=== PATIENT | female | born 1985 | race Caucasian/White ===

== ENCOUNTER 2020-11-09 07:18 | Emergency (ER) | payer OTHER ==
[~2020-11-09] VITALS: Ht 157.5 cm; Wt 81.7 kg
[2020-11-09] MEDS ORDERED: LOSARTAN POTASS50 MG PO (07:34)
[2020-11-09] MEDS ORDERED: HYDROCHLOROTHIA25 MG PO (07:34)
--- OUTSIDE RECORDS SUMMARY | 2020-11-09 08:04 | XMS ---
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 Jass VISIT COUNT (12 MO.) [address] [place] [address] TOTAL 2 NOTE: Visits indicate total known visits. ED/UCC VISIT TRACKING (12 MO.) 11/09/2020 07:18 [facility] [place] TYPE: Emergency COMPLAINT: - NECK PAIN/ SWELLING 11/09/2020 05:33 [facility] [place] TYPE: Emergency COMPLAINT: - EAR PAIN DIAGNOSES: - EAR PAIN INPATIENT VISIT TRACKING (12 MO.) No inpatient visits to display in this time frame [id number]
== END 2020-11-09 07:50 | disposition home or self-care (01) ==
LOC: ED 07:18
DX: S10.96XA Insect bite of unspecified part of neck, initial encounter (principal); W57.XXXA Bitten or stung by nonvenomous insect and other nonvenomous arthropods, initial encounter; I10 Essential (primary) hypertension; F17.200 Nicotine dependence, unspecified, uncomplicated; Z88.0 Allergy status to penicillin
CPT/HCPCS: 99281

== ENCOUNTER 2024-10-26 14:33 | Emergency (ER) | payer OTHER ==
[~2024-10-26] VITALS: Ht 157.5 cm; Wt 82.0 kg
[~2024-10-26 14:33] MED LIST: HYDROCHLOROTHIA25 MG PO; LOSARTAN POTASS50 MG PO
[2024-10-26] MEDS ORDERED: SODIUM CHLORIDE 0.9% 1,000 ML IV PRN (15:00)
[2024-10-26] MEDS ORDERED: KETOROLAC TROMETHAMINE 15 MG/ML VIAL IV ONE (15:00)
[2024-10-26] MEDS ORDERED: METOCLOPRAMIDE HCL 10 MG/2 ML SDV IV ONE (15:00)
[2024-10-26 15:38] VITALS: BP 126/96
== END 2024-10-26 15:38 | disposition home or self-care (01) ==
LOC: ED 14:33
DX: R51.9 Headache, unspecified (principal); I10 Essential (primary) hypertension; F17.200 Nicotine dependence, unspecified, uncomplicated; Z88.0 Allergy status to penicillin
CPT/HCPCS: 96374; 96375; 99283-25; J1200; J1885; J2765; J7030